=== PATIENT | female | born 1985 | race Caucasian/White ===

== ENCOUNTER 2017-01-21 09:32 | Emergency (ER) | payer SELFPAY ==
[~2017-01-21] VITALS: Ht 170.2 cm; Wt 77.5 kg
[~2017-01-21 09:32] MED LIST: ACET-141 PO; FERR28TA PO; IBUP-1542 PO; PREN-39 PO
[2017-01-21 09:36] VITALS: Ht 170.2 cm; Wt 77.5 kg
== END 2017-01-21 10:18 | disposition left against medical advice (07) ==
LOC: E/R 09:32
DX: Z53.21 Procedure and treatment not carried out due to patient leaving prior to being seen by health care provider (principal)

== ENCOUNTER 2018-06-21 10:45 | Emergency (ER) | END 2018-06-21 12:51 | disposition home or self-care (01) ==